=== PATIENT | male | born 1955 | race Caucasian/White ===

== ENCOUNTER → 2020-09-25 | Outpatient (CLI) | payer MEDICARE ==
[~2020-09-25] MED LIST: BISA10SU54 PR; HYDR-3245 PO; INDO50CA15 PO; ISOS40TA17 PO; MAGN400O7 PO; METH750T87 PO; OXYC-307 PO; TIZA4TAB2 PO; [UNRECOGNIZED DRUG - REMARK] PO; cannabis INH
== END | disposition home or self-care (01) ==
LOC: CFH 11:45
PROVIDERS: ATTEND Nurse Practitioner
DX: Z12.2 Encounter for screening for malignant neoplasm of respiratory organs (principal); J43.9 Emphysema, unspecified; J84.10 Pulmonary fibrosis, unspecified; F17.210 Nicotine dependence, cigarettes, uncomplicated
CPT/HCPCS: G0297